=== PATIENT | male | born 1995 | race Caucasian/White ===

== ENCOUNTER 2016-06-10 16:54 | Emergency (ER) | payer OTHER ==
[2016-06-10 16:58] VITALS: BP 156/88; PULSE 118; RESP 20; TEMP 98.2; O2SAT 99
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
[2016-06-10] MEDS ORDERED: ROBA500T PO (17:35)
[2016-06-10] MEDS ORDERED: IBUP800T23 PO (17:35)
[2016-06-10] MEDS ORDERED: IBUPROFEN 800 MG TAB PO ONE (17:45)
== END 2016-06-10 18:22 | disposition home or self-care (01) ==
LOC: NEPK 16:54
DX: S16.1XXA Strain of muscle, fascia and tendon at neck level, initial encounter (principal); R51 Headache; V49.9XXA Car occupant (driver) (passenger) injured in unspecified traffic accident, initial encounter
CPT/HCPCS: 99283